=== PATIENT | female | born 1995 | race African-American/Black ===

== ENCOUNTER 2019-10-05 17:57 | Emergency (ER) | payer BC, SELFPAY ==
[2019-10-05 18:04] VITALS: BP 152/97; PULSE 98; RESP 16; TEMP 36.7; O2SAT 100
[2019-10-05] MEDS: DIAZEPAM 5 MG TABLET PO (18:17)
[2019-10-05] MEDS: KETOROLAC (*BKC) 60 MG/2 ML VIAL IM (18:17)
--- NOTE | 2019-10-05 18:52 | ED.BACK ---
HPI - Back Pain/Injury General Chief Complaint: Back Pain/Injury <Terence Duke PA-C - Last Filed: 10/05/19 18:56> Stated Complaint: neck pain, headache <Terence Duke PA-C - Last Filed: 10/05/19 18:56> Time Seen by Provider: 10/05/19 18:05 <Terence Duke PA-C - Last Filed: 10/05/19 18:56> Source: patient <Terence Duke PA-C - Last Filed: 10/05/19 18:56> Mode of arrival: ambulatory <Terence Duke PA-C - Last Filed: 10/05/19 18:56> Limitations: no limitations <Terence Duke PA-C - Last Filed: 10/05/19 18:56> History of Present Illness HPI Narrative: Patient is a 24-year-old female who presents to emergency department for evaluation of neck pain on the right side is a aching pain worse with activity and movement patient denies injury or trauma patient has had similar occurrences in the past evaluated by primary care has been given Flexeril which she has taken with minimal improvement pain is worse with activity and movement denies recent illness or other complaints has follow-up with primary care in the near future <Terence Duke PA-C - Last Filed: 10/05/19 18:56> Related Data Allergies/Adverse Reactions: Allergies Allergy/AdvReac Type Severity Reaction Status Date / Time codeine Allergy Hives Verified 10/05/19 18:10 diphenhydramine Allergy Swelling Verified 10/05/19 18:10 [From Benadryl] of Lip/Tongue/Throat <Terence Duke PA-C - Last Filed: 10/05/19 18:56> Review of Systems Review of Systems: All systems reviewed & are unremarkable except as noted in HPI and below <Terence Duke PA-C - Last Filed: 10/05/19 18:56> PMFSH Social History Social History: Social History Gender identity (if verbalized by the patient): Female <CHRISTOPHE Cha Last Filed: 10/05/19 18:56> Exam Narrative: Exam Narrative: GENERAL: Well-appearing, well-nourished, and in no acute distress. HEAD: Normocephalic, atraumatic. EYES: PERRLA and EOMI. ENT: Nares clear, no rhinorrhea or epistaxis. Mucous membranes moist. Oropharynx without tonsillar hypertrophy exudate or other lesions. NECK: Supple. No adenopathy or masses. CHEST: Clear to auscultation. No respiratory distress. No wheezes rales or rhonchi HEART: Regular rate and rhythm. No murmur heard. Normal peripheral pulses. EXTREMITIES: Normal range of motion. No edema. Tenderness of the right paraspinal cervical musculature. No midline or left-sided tenderness SKIN: Warm, dry, no rash. NEURO: No focal deficits. Alert and oriented x3. Cranial nerves II through XII grossly intact. Normal speech and gait PSYCH: Normal mood and affect. <CHRISTOPHE Cha Last Filed: 10/05/19 18:56> Course Course Emergency Course: Patient in the room aware of case findings treatment plan and diagnosis felt appropriate for outpatient reevaluation by primary care <CHRISTOPHE Cha Last Filed: 10/05/19 18:56> Vital Signs Vital signs: Vital Signs Temperature 98.1 F 10/05/19 18:04 Pulse Rate 98 10/05/19 18:04 Respiratory Rate 16 10/05/19 18:04 Blood Pressure 152/97 H 10/05/19 18:04 Pulse Oximetry 100 10/05/19 18:04 Temperature 98.1 F 10/05/19 18:04 Pulse Rate 98 10/05/19 18:04 Respiratory Rate 16 10/05/19 18:04 Blood Pressure 152/97 H 10/05/19 18:04 Pulse Oximetry 100 10/05/19 18:04 <CHRISTOPHE Cha Last Filed: 10/05/19 18:56> Vital Signs Temperature 98.1 F 10/05/19 18:04 Pulse Rate 98 10/05/19 18:04 Respiratory Rate 16 10/05/19 18:04 Blood Pressure 152/97 H 10/05/19 18:04 Pulse Oximetry 100 10/05/19 18:04 Temperature 98.1 F 10/05/19 18:04 Pulse Rate 98 10/05/19 18:04 Respiratory Rate 16 10/05/19 18:04 Blood Pressure 152/97 H 10/05/19 18:04 Pulse Oximetry 100 10/05/19 18:04 <Kyleigh Cisneros MD - Last Filed: 10/05/19 22:13>
== END 2019-10-05 19:04 | disposition home or self-care (01) ==
PROVIDERS: Emergency Provider Emergency Medicine
DX: S16.1XXA Strain of muscle, fascia and tendon at neck level, initial encounter (principal); X58.XXXA Exposure to other specified factors, initial encounter
CPT/HCPCS: 96372; 99283; A9270; J1885